=== PATIENT | male | born 1970 | race Caucasian/White ===

== ENCOUNTER 2018-06-01 07:43 | Day surgery (SDC) | payer OTHER, SELFPAY ==
--- NOTE | 2018-06-01 | PATH_ITS ---
[facility] Accession Number: [id number] . 01 Material submitted: . RECTAL/SIGMOID POLYP . 02 Diagnosis: Rectosigmoid Colon, Polyp, Biopsy: Hyperplastic polyp. [facility]/06/02/2018 . 02 Electronically signed: . Ximena Koenig MD, Pathologist NPI- [id number] . 01 Gross description: . Received one formalin-filled container labeled with the patient's name and labeled rectal/sigmoid polyp. The specimen consists of a 0.3 cm portion of tissue, entirely submitted in one cassette. ([id number]) /FRR . 02 Pathologist provided ICD-10: K63.5 . 02 CPT . 542253 Performed at: [address] [facility] [address] [id number] MD Dwight Ty MD Phone: [phone] Performed at: 02 [facility] [place] [address] [place], [place] [id number] MD Ximena Koenig MD Phone: [phone]
[2018-06-01 07:58] VITALS: BMI 29.1
[2018-06-01 08:12] VITALS: BP 145/77; PULSE 77; RESP 16; TEMP 36.4; O2SAT 99
[2018-06-01] MEDS: SODIUM CHLORIDE 0.9% 1,000 ML 70 ML IV (08:15)
--- NOTE | 2018-06-01 08:33 | P.HP_ITS ---
History of Present Illness Date Patient Seen: 06/01/18 Chief complaint: colonoscopy [id number] Narrative: 48-year-old male with a family history of colon polyps here for initial screening Meds Home Medications Medication Instructions Recorded Confirmed Type No Known Home Medications 06/01/18 06/01/18 History Allergies Allergy/AdvReac Type Severity Reaction Status Date / Time No Known Drug Allergies Allergy Verified 06/01/18 07:58 Exam Vital Signs (past 8 hours): - 06/01/18 08:12 Temperature 97.5 F L Pulse Rate 77 Respiratory Rate 16 Blood Pressure 145/77 H Pulse Oximetry 99 Oxygen Delivery Method Room Air Narrative Exam Narrative: General: Patient is well developed, not in apparent distress Cardiovascular: Regular rate and rhythm, no murmurs, rubs, or gallops; no evidence of edema; no palpable abdominal aortic aneurysm Gastrointestinal: Normoactive bowel sounds, soft, nontender, nondistended, no rebound tenderness, no hepatosplenomegaly, no evidence of hernia Assessment & Plan Plan: Assessment/Plan Narrative: 48-year-old male with family history of colon polyps here for initial screening Regarding the procedure(s), the risks and potential complications, benefits, and alternatives (including not doing the procedure) were discussed with the patient. The risks include but are not limited to bleeding, splenic injury, infection, perforation which may require surgical intervention, missed lesions, and adverse reactions to sedative medicines. After a question and answer period , the patient agreed to proceed with the procedure(s) and gives informed consent.
--- NOTE | 2018-06-01 08:57 | PM.OP.ENDO ---
Operative Date/Time/Diagnoses Date of procedure: 06/01/18 Procedure Notes Procedure in detail: Surgeon: Izaiah Serna MD Procedure: Colonoscopy with polypectomy Preoperative diagnosis: Colon cancer screening, family history of colon polyps (father in early 60s) Postoperative diagnosis: Rectosigmoid polyp, single descending colon diverticulum, grade 1 internal hemorrhoids Medications: None Preanesthesia Assessment An H and P was performed/updated and the Px?s ASA class is 1. The procedure was discussed in detail with the patient. The potential risks and complications including infection, bleeding, missed lesions, perforation, need for surgery in case of perforation, prolonged hospital stay, and were explained. A brief question and answer period was allotted and once all questions were answered, informed consent was obtained. The patient was brought back to the procedure room and placed on standard monitoring. The patient?s vital signs were monitored continuously throughout the entire procedure. Prior to starting, a timeout was performed to confirm the patient?s identity, allergies, medications, and procedure. Procedure in detail The patient was placed in left lateral decubitus position and once adequate sedation was obtained a VIRGILIO was performed. The digital rectal examination did not reveal any palpable lesions. The tip of the colonoscope was placed in the anal canal and advanced without difficulty all the way to the cecum which was identified by the appendiceal orifice and the ileocecal valve. Careful examination of all christianson of the colon was performed with irrigation of any residual stool. In the descending colon there was a single medium-sized diverticulum In the rectosigmoid colon there was a 3 mm sessile polyp which was removed by means of a cold Jumbo forceps. Resection and retrieval were complete with minimal bleeding Retroflexion was performed in the rectum and this showed grade 1 internal hemorrhoids The patient tolerated the procedure well and will be brought back to the recovery area to be discharged once criteria are met. The prep was judged to be good/excellent and adequate to identify polyps less than 5 mm. The withdrawal time was 12 min. Complications There were no complications and estimated blood loss was minimal. Recommendations: Resume previous diet Continue outPx medications Follow up pathology results Repeat colonoscopy in 5 years for surveillance An emergency contact number was given to the patient for any complications related to the procedure
--- NOTE | 2018-06-01 09:02 | PM.DS.1 ---
History of Present Illness Chief complaint: colonoscopy [id number] Narrative: 48-year-old male with a family history of colon polyps here for initial screening Discharge Providers Primary care physician: Elmer Chavez MD Discharge provider: Izaiah Serna MD Discharge Date: 06/01/18 Exam Vital Signs (past 8 hours): - 06/01/18 08:12 Temperature 97.5 F L Pulse Rate 77 Respiratory Rate 16 Blood Pressure 145/77 H Pulse Oximetry 99 Oxygen Delivery Method Room Air Narrative Exam Narrative: General: Patient is well developed, not in apparent distress Cardiovascular: Regular rate and rhythm, no murmurs, rubs, or gallops; no evidence of edema; no palpable abdominal aortic aneurysm Gastrointestinal: Normoactive bowel sounds, soft, nontender, nondistended, no rebound tenderness, no hepatosplenomegaly, no evidence of hernia Discharge Plan Discharge Plan Patient Disposition: Home Discharge Med Rec/Prescriptions Prescriptions: No Action No Known Home Medications RF: 0 Discharge Orders: Discharge (Order); Ordered 06/01/18 Ordered By: Izaiah Serna Visit Report/Discharge Packet Stand Alone Forms: Surgery Discharge Discharge Data Primary Care Provider: Elmer Chavez V Attending Provider: Izaiah Serna
[2018-06-01 09:03] VITALS: BP 137/79; PULSE 56; RESP 15; TEMP 36.6; O2SAT 100
== END 2018-06-01 09:09 | disposition home or self-care (01) ==
PROVIDERS: PCP Internal Medicine; Visit Provider Internal Medicine Gastroenterology
PROC: 0DJD8ZZ Inspection of Lower Intestinal Tract, Via Natural or Artificial Opening Endoscopic (ICD-10-PCS; CPT 45378; principal; 2018-06-01 09:00)
DX: Z12.11 Encounter for screening for malignant neoplasm of colon (principal); Z83.71 Family history of colonic polyps; K57.30 Diverticulosis of large intestine without perforation or abscess without bleeding; K64.0 First degree hemorrhoids; K63.5 Polyp of colon
CPT/HCPCS: 45380